=== PATIENT | female | born 1960 | race Caucasian/White ===

== ENCOUNTER → 2017-08-12 | Outpatient (CLI) | payer OTHER | LOC: RAD 06:46 | DX: K21.9 Gastro-esophageal reflux disease without esophagitis (principal); K44.9 Diaphragmatic hernia without obstruction or gangrene ==

== ENCOUNTER → 2017-09-17 | Outpatient (CLI) | payer OTHER ==
--- NOTE | ~2017-09-17 | P ---
[facility] [place] [address] PROCEDURE REPORT Name: SOILA LEON Room #: REG [facility].#: [id number] Admission: 09/17/17 Attend Phys: Edu May MD Discharge: Date of : 58 Report #: [id number] THIS REPORT FOR: //name// CC: Kate Hair DATE OF SERVICE: 09/17/2017 PROCEDURE: Fiberoptic bronchoscopy with airway surveillance. 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 ASA CLASSIFICATION: Class 2. PROCEDURE NOTATION: After discussing risks, benefits of planned procedure with the patient, she desired to proceed. After obtaining informed consent, she was brought to laboratory chemical assistant 3. She was placed on continuous cardiopulmonary monitoring and supplemental oxygen. She was given 2% lidocaine nebulized to anesthetize the upper respiratory tract. Once complete, she received conscious sedation. 4 mg of Versed and 25 mcg were initially infused but however, when patient was not responding to medication, it was noted that her right forearm IV had infiltrated. A new IV was placed in the left arm. Once accomplished, she received 2 mg of Versed and 25 mcg of fentanyl, which provided more than adequate sedation. Bronchoscope was then passed through an oral biteblock until vocal cords were visualized. Vocal cords moved appropriately both before and after procedure. No significant abnormalities. The larynx could be appreciated, although views were limited with the bronchoscope. A 2% lidocaine was then instilled on the vocal cords by topical anesthesia. Bronchoscope was then passed in the trachea where 2% lidocaine was instilled to provide topical anesthesia. Airways were surveyed. FINDINGS: Mainstem, lobar, segmental and subsegmental bronchi were all explored and appeared patent with no significant anatomic variation or disease. No significant secretions noted. No specimens were collected during this as there was nothing abnormal on scan or imaging to warrant further specimen collection. The bronchoscope was then slowly retracted to evaluate the trachea more thoroughly and the trachea appeared to be patent, with no significant disease. Nothing for any fistulous or diverticulum appreciated in the trachea. The trachea appeared smooth and normal with the exception of some rightward deviation of the more proximal trachea, presumed to be related to some extrinsic compression in this area, pushing the trachea in a more right lateral position. There is no endobronchial or endotracheal disease appreciated. When the [facility] [address] [place] [address] PROCEDURE REPORT Name: SOILA LEON Room #: REG [facility]#: [id number] Admission: 09/17/17 Attend Phys: Edu May MD Discharge: Date of : 58 Report #: [id number] bronchoscope was finally retracted all the way out through the vocal cords, the vocal cords were observed during phonation and they appeared to move appropriately. No significant disease could be identified at the level of the vocal cords or below. The patient tolerated very well with no noted complications. IMPRESSION: Normal appearing airways with the exception of the rightward deviation as outlined above. PLAN: We will discuss further with ENT, Gastroenterology and General Surgery regarding abnormal CT findings in the neck. By: [id number] Edu May MD /nt
== END | disposition home or self-care (01) ==
LOC: CATH 09-08 11:55
DX: J98.8 Other specified respiratory disorders (principal); Z98.51 Tubal ligation status; Z98.890 Other specified postprocedural states; Z85.01 Personal history of malignant neoplasm of esophagus